=== PATIENT | male | born 1940 | race Caucasian/White ===

== ENCOUNTER 2024-01-30 09:08 | Day surgery (SDC) | payer MEDICARE, SELFPAY ==
[2024-01-29 14:11] VITALS: BMI 20.7
[2024-01-30] MEDS: CYCLOPENTOLATE 2% OPHTH SOLN 2ML BOTTLE OP ×3 (10:07→10:22)
[2024-01-30] MEDS: PHENYLEPHRINE 2.5% OPHTH SOLN 2ML OP ×3 (10:07→10:22)
[2024-01-30] MEDS: TETRACAINE 0.5% OPTH SOL 15ML OP ×3 (10:08→10:22)
[2024-01-30 10:18] VITALS: BP 148/92; PULSE 74; RESP 20; TEMP 36.1; O2SAT 98; BMI 20.7
[2024-01-30 11:12] VITALS: BP 114/58; PULSE 78; RESP 16; O2SAT 96
[2024-01-30] MEDS: MIDAZOLAM 2MG/2ML VIAL 2 MG (11:12)
[2024-01-30] MEDS: LIDOCAINE 1% PF 2ML AMPULE 2 ML IJ (11:16)
[2024-01-30] MEDS: TOBRAMYCIN/DEX OPTH SUSP 2.5ML OP (11:16)
[2024-01-30] MEDS: TIMOLOL 0.5% OPTH SOLN 5ML OP (11:16)
[2024-01-30] MEDS: SODIUM CHLORIDE 0.9% 10ML FLUSH SYRINGE 10 ML IV (11:16)
[2024-01-30 11:17] VITALS: BP 111/58; PULSE 72; RESP 16; O2SAT 95
[2024-01-30 11:23] VITALS: BP 106/58; PULSE 71; RESP 16; O2SAT 95
[2024-01-30 11:27] VITALS: BP 104/56; PULSE 69; RESP 16; O2SAT 95
[2024-01-30 11:37] VITALS: BP 110/50; PULSE 93; RESP 17; TEMP 36.5; O2SAT 94
== END 2024-01-30 11:40 | disposition home or self-care (01) ==
PROVIDERS: Visit Provider Ophthalmology
PROC: (CPT 66984; principal; 2024-01-30 12:00)
DX: H26.9 Unspecified cataract (principal)
CPT/HCPCS: 66984; J2250; V2632

== ENCOUNTER 2024-03-19 07:06 | Day surgery (SDC) | payer MEDICARE, SELFPAY ==
[2024-03-15 10:57] VITALS: BMI 21.4
[2024-03-19 08:24] VITALS: BP 145/92; PULSE 74; RESP 18; TEMP 36.6; O2SAT 97
[2024-03-19] MEDS: CYCLOPENTOLATE 2% OPHTH SOLN 2ML BOTTLE OP ×3 (08:25→08:38)
[2024-03-19] MEDS: TETRACAINE 0.5% OPTH SOL 15ML OP ×3 (08:25→08:35)
[2024-03-19] MEDS: PHENYLEPHRINE 2.5% OPHTH SOLN 2ML OP ×3 (08:25→08:35)
[2024-03-19 08:32] LABS: POC Glucose,Bedside 122 (70-110)
[2024-03-19 08:55] VITALS: BP 130/62; PULSE 65; RESP 18; O2SAT 98
[2024-03-19] MEDS: TIMOLOL 0.5% OPTH SOLN 5ML OP (08:55)
[2024-03-19] MEDS: MIDAZOLAM 2MG/2ML VIAL 1 MG IV (08:55)
[2024-03-19] MEDS: TOBRAMYCIN/DEX OPTH SUSP 2.5ML OP (08:55)
[2024-03-19] MEDS: LIDOCAINE 1% PF 2ML AMPULE 2 ML IJ (08:55)
[2024-03-19 09:00] VITALS: BP 137/64; PULSE 75; RESP 18; O2SAT 92
[2024-03-19 09:05] VITALS: BP 135/62; PULSE 76; RESP 18; O2SAT 92
[2024-03-19 09:10] VITALS: BP 132/55; PULSE 77; RESP 18; O2SAT 92
[2024-03-19 09:15] VITALS: BP 129/57; PULSE 63; RESP 18; TEMP 36.1; O2SAT 97
--- NOTE | 2024-03-19 11:41 | [facility].PROCNOTE ---
[facility] Procedure Note Date: 03/19/24 Time: 11:41 Procedure Note:: Preoperative Diagnosis: Cataract combined NS Cortical Complex [Left] Eye Postop diagnosis: same Operation: Microscopic phacoemulsification with intraocular lens implant [Left] Eye Specimen: None Blood Loss: None The patient was examined in the office with a complaint of poor vision in the [left] eye. The patient reports that this interferes with ADLs such as reading, watching TV and/or driving or the vision is like looking through a foggy haze and is very troubling. The patient was examined and found to have a visually significant cataract with best corrected vision of [20/400] by refraction and/or glare testing. Treatment options, risks and benefits were explained and the patient elected to have cataract surgery in an attempt to improve their vision. The patient had the eye anesthetized with topical tetracaine, the eye ways prepped and draped in the usual fashion for cataract surgery. A paracentesis and a temporal keratotomy were made. 0.2cc of 1% lidocaine PF was placed into the anterior chamber. And aqueous/viscoelastic exchange was done and a 360 degree capsulorexis was performed. Through hydrodissection and delineation with BSS on a cannula was done. The lens nucleus was phecoemulsified with CDE of [9.00]. Residual cortical material was removed using automated I&A The capsular bag was deepened with viscoelastica and a PCIOL was placed in the capsular bag with good centration and stability. Residual viscoelastic was removed using automated I&A. The keratotomy incision was hydrated with BSS on a cannula. The wound were checked and found to be water tight. IOP was checked digitally and adjusted as needed so as not to be too high. 1 drop of timolol 0.5%, ofloxacin, prednisolone acetate and ketorolac was instilled and eye shield taped over the eye. The patient was taken to recovery in good condition and will be seen postoperatively.
== END 2024-03-19 09:20 | disposition home or self-care (01) ==
PROVIDERS: Visit Provider Ophthalmology
PROC: (CPT 66984; principal; 2024-03-19 09:45)
DX: H25.012 Cortical age-related cataract, left eye (principal); E11.9 Type 2 diabetes mellitus without complications; Z79.84 Long term (current) use of oral hypoglycemic drugs
CPT/HCPCS: 66984; 82962; J2250; V2632